=== PATIENT | female | born 2000 | race Hispanic/Latino ===

== ENCOUNTER 2019-05-06 20:17 | Emergency (ER) | payer MEDICAID ==
[2019-05-06] MEDS ORDERED: LIDOCAINE HCL 1% 20 ML VIAL ONE (21:32)
[2019-05-06] MEDS ORDERED: IBUPROFEN 600 MG TABLET ONE (21:35)
== END 2019-05-06 21:39 | disposition home or self-care (01) ==
LOC: EDH 20:17
DX: L05.01 Pilonidal cyst with abscess (principal)
CPT/HCPCS: 10080

== ENCOUNTER 2023-12-21 14:16 | Emergency (ER) | payer MEDICAID ==
[~2023-12-21] VITALS: Ht 157.5 cm; Wt 47.6 kg
[2023-12-21 14:35] VITALS: BP 116/73; PULSE 97; RESP 17; O2SAT 100
[2023-12-21] MEDS ORDERED: AZEL23SP NS (15:52)
[2023-12-21] MEDS ORDERED: AMOX1TAB16 PO (15:52)
[2023-12-21] MEDS ORDERED: IBUP-2070 PO (15:52)
[2023-12-21] MEDS: KETOROLAC 60 MG VIAL (30MG/ML) IM ONE (15:52)
[2023-12-21] MEDS: PREDNISONE 20 MG TABLET PO ONE (15:52)
[2023-12-21] MEDS ORDERED: CHLO473M2 MM (15:55)
== END 2023-12-21 16:06 | disposition home or self-care (01) ==
LOC: EDH 14:16
DX: J01.90 Acute sinusitis, unspecified (principal); K08.89 Other specified disorders of teeth and supporting structures
CPT/HCPCS: 99283; 96372; J1885